=== PATIENT | male | born 1945 | race Caucasian/White ===

== ENCOUNTER 2021-05-20 14:37 | Inpatient (IN) | payer MEDICARE ==
[~2021-05-20 14:37] MED LIST: Iopamidol-370 76% 500 ML 1 ML ONE
[2021-05-20] MEDS ORDERED: Acetaminophen 500 MG TAB ONE (15:04)
[2021-05-20] MEDS ORDERED: Aspirin 325 MG TAB ONE (15:04)
[2021-05-20] MEDS ORDERED: Dexamethasone 10 MG/ML VIAL ONE (15:04)
[2021-05-20 15:23] LABS: Actual Bicarbonate (HCO3v) 23 mEq/L (22-28); Analyzer IN Cardio ER; Calcium, Ionized (venous) 1.07 mmol/L (1.16-1.32); Chloride (VBG) 96 mmol/L (98-106); Hemoglobin (Hb) 14.5 g/dL (12.6-17.4); Potassium (VBG) 4.64 mmol/L (3.70-5.30); Sodium 131.1 mmol/L (133-146); pH (venous) 7.42 (7.32-7.43)
[2021-05-20 15:33] LABS: #Eosinphils 0.1 thou/uL (0.0-0.7); #Lymphocytes 0.8 thou/uL (1.20-3.40); #Monocytes 0.3 thou/uL (0.11-0.59); #Neutrophils 9.6 thou/uL (1.40-6.50); %Basophils 0.4 % (0.0-1.0); %Eosinophils 0.5 % (0.0-10.0); %Lymphocytes 7.2 % (21.0-51.0); %Neutrophils 88.9 % (42.0-75.0); Hemoglobin 14.2 g/dL (14.0-18.0); Mean Corpuscular Hemoglobin 27.7 pg (27.0-31.0); Mean Corpuscular Volume 86.6 fL (78.0-98.0); Platelet Count 263 thou/uL (130-400); RBC Distribution Width 12.3 % (11.5-14.5); Red Blood Cell (RBC) Count 5.11 mill/uL (4.70-6.10); White Blood Cell (WBC) Count 10.7 thou/uL (4.8-10.8)
[2021-05-20 15:55] LABS: ALT (SGPT) 14 U/L (8-55); AST (SGOT) 36 U/L (5-34); Albumin 4.1 g/dL (3.4-4.8); Alkaline Phosphatase 66 U/L (40-110); Anion Gap 16 mmol/L (10-20); BUN (Urea Nitrogen) 21 mg/dL (8.4-25.7); Bilirubin, Total 0.4 mg/dL (0.2-1.2); Calc. Creatinine Clearance 0 mL/min (70-130); Carbon Dioxide 24 mmol/L (23-31); Chloride 97 mmol/L (98-107); Globulin 3.2 g/dL (2.4-3.5); Glucose 100 mg/dL (83-110); Potassium 4.9 mmol/L (3.5-5.1); Protein, Total 7.3 g/dL (5.8-8.1); Sodium 132 mmol/L (136-145)
[2021-05-20] MEDS ORDERED: Calcium Carbonate 500 MG ChewTAB PO PRN (18:03)
[2021-05-20] MEDS ORDERED: Senokot S 8.6-50 MG TAB PO PRN (18:03)
[2021-05-20] MEDS ORDERED: Enoxaparin Sodium 40 MG/0.4 ML SYRINGE SC SCH (18:15)
[2021-05-20] MEDS ORDERED: Pharmacy to Dose REMDESIVIR IVPB PRN (18:27)
[2021-05-20 18:47] LABS: Lactic Acid 1.1 mmol/L (0.5-2.2)
[2021-05-20] MEDS: Azithromycin 500 MG in Sodium Chloride 0.9% 250 ML 250 ML IVPB SCH (21:05)
[2021-05-20] MEDS: Famotidine/PF 20 mg/2ml Vial SLOW IVP SCH (21:26)
[2021-05-21 02:06] LABS: SARS-CoV-2 NAA Rapid Test DETECTED (NotDetected)
[2021-05-21] MEDS: Dexamethasone 10 MG/ML VIAL SLOW IVP SCH ×2 (02:32→17:01)
[2021-05-21] MEDS: Ondansetron PF 4 MG/2 ML Vial IVP PRN ×2 (02:36→18:20)
[2021-05-21 08:01] LABS: #Lymphocytes 0.4 thou/uL (1.20-3.40); #Monocytes 0.2 thou/uL (0.11-0.59); #Neutrophils 7.5 thou/uL (1.40-6.50); %Basophils 0.2 % (0.0-1.0); %Eosinophils 0.5 % (0.0-10.0); %Lymphocytes 4.6 % (21.0-51.0); %Monocytes 2.4 % (0.0-10.0); %Neutrophils 92.4 % (42.0-75.0); Hemoglobin 13.1 g/dL (14.0-18.0); Mean Corpuscular HGB CONC 31.9 g/dL (32.0-36.0); Mean Corpuscular Hemoglobin 27.4 pg (27.0-31.0); Mean Corpuscular Volume 85.8 fL (78.0-98.0); Mean Platelet Volume 7.7 fL (7.4-10.4); Platelet Count 273 thou/uL (130-400); RBC Distribution Width 12.2 % (11.5-14.5); Red Blood Cell (RBC) Count 4.78 mill/uL (4.70-6.10); White Blood Cell (WBC) Count 8.1 thou/uL (4.8-10.8)
[2021-05-21 08:16] LABS: ALT (SGPT) 12 U/L (8-55); AST (SGOT) 33 U/L (5-34); Albumin 3.5 g/dL (3.4-4.8); Alkaline Phosphatase 57 U/L (40-110); Anion Gap 14 mmol/L (10-20); BUN (Urea Nitrogen) 18 mg/dL (8.4-25.7); Bilirubin, Total 0.4 mg/dL (0.2-1.2); Calc. Creatinine Clearance 102 mL/min (70-130); Calcium 8.6 mg/dL (7.8-10.44); Carbon Dioxide 24 mmol/L (23-31); Chloride 100 mmol/L (98-107); Globulin 2.8 g/dL (2.4-3.5); Glucose 131 mg/dL (83-110); Potassium 4.9 mmol/L (3.5-5.1); Protein, Total 6.3 g/dL (5.8-8.1); Sodium 133 mmol/L (136-145)
[2021-05-21] MEDS ORDERED: FLU VACC QS2021-22(65YR UP)/PF 240 MCG/0.7 ML SYRINGE IM ONE (09:00)
[2021-05-21] MEDS ORDERED: Cholecalciferol (Vitamin D3) 400 UNITS TAB PO SCH (09:00)
[2021-05-21] MEDS ORDERED: Zinc Sulfate 220 MG CAP PO SCH (09:00)
[2021-05-21] MEDS ORDERED: Ascorbic Acid 500 mg Chewable Tablet PO SCH (09:00)
[2021-05-21] MEDS: Ascorbic Acid 500 mg Chewable Tablet PO SCH (09:41)
[2021-05-21] MEDS: HYDROcodone/Acetaminophen 5/325 mg Tablet PO PRN (09:41)
[2021-05-21] MEDS: Benzonatate 100 MG CAP PO PRN ×2 (09:41→17:01)
[2021-05-21] MEDS: Famotidine/PF 20 mg/2ml Vial SLOW IVP SCH ×2 (09:42→20:07)
[2021-05-21] MEDS: Zinc Sulfate 220 MG CAP PO SCH (09:42)
[2021-05-21] MEDS: Guaifenesin DM 100-10/5 ML UDCUP PO PRN ×2 (09:43→17:01)
[2021-05-21] MEDS: Cholecalciferol (Vitamin D3) 400 UNITS TAB PO SCH (09:43)
[2021-05-21] MEDS: Enoxaparin Sodium 40 MG/0.4 ML SYRINGE SC SCH (09:43)
[2021-05-21] MEDS ORDERED: REMDESIVIR 200 MG in Sodium Chloride 0.9% 250 ML 210 ML IV SCH (10:00)
[2021-05-21] MEDS: cefTRIAXone\\ROCEPHIN 2 GM in Sodium Chloride 0.9% 100 ML IVPB SCH (17:00)
[2021-05-21] MEDS: Acetaminophen 325 MG TAB PO PRN (17:17)
[2021-05-21] MEDS: Azithromycin 500 MG in Sodium Chloride 0.9% 250 ML 250 ML IVPB SCH (18:07)
[2021-05-21] MEDS: Melatonin 3 MG TAB PO PRN (20:07)
[2021-05-22] MEDS: Dexamethasone 10 MG/ML VIAL SLOW IVP SCH ×2 (02:38→15:23)
[2021-05-22] MEDS: hydrOXYzine 25 MG TAB PO PRN (02:38)
[2021-05-22] MEDS: Benzonatate 100 MG CAP PO PRN (08:22)
[2021-05-22] MEDS: Cholecalciferol (Vitamin D3) 400 UNITS TAB PO SCH (08:22)
[2021-05-22] MEDS: Ascorbic Acid 500 mg Chewable Tablet PO SCH (08:22)
[2021-05-22] MEDS: Guaifenesin DM 100-10/5 ML UDCUP PO PRN (08:23)
[2021-05-22] MEDS: HYDROcodone/Acetaminophen 5/325 mg Tablet PO PRN (08:23)
[2021-05-22] MEDS: Zinc Sulfate 220 MG CAP PO SCH (08:23)
[2021-05-22] MEDS: Famotidine/PF 20 mg/2ml Vial SLOW IVP SCH ×2 (08:24→20:45)
[2021-05-22] MEDS: Enoxaparin Sodium 40 MG/0.4 ML SYRINGE SC SCH (08:24)
[2021-05-22 08:39] LABS: #Lymphocytes 0.3 thou/uL (1.20-3.40); #Monocytes 0.3 thou/uL (0.11-0.59); #Neutrophils 7.4 thou/uL (1.40-6.50); %Eosinophils 0.2 % (0.0-10.0); %Lymphocytes 4.1 % (21.0-51.0); %Monocytes 3.8 % (0.0-10.0); %Neutrophils 91.9 % (42.0-75.0); Hemoglobin 12.2 g/dL (14.0-18.0); Mean Corpuscular HGB CONC 32.4 g/dL (32.0-36.0); Mean Corpuscular Hemoglobin 28.1 pg (27.0-31.0); Mean Corpuscular Volume 86.5 fL (78.0-98.0); Mean Platelet Volume 7.7 fL (7.4-10.4); Platelet Count 277 thou/uL (130-400); RBC Distribution Width 12.2 % (11.5-14.5); Red Blood Cell (RBC) Count 4.35 mill/uL (4.70-6.10)
[2021-05-22 08:52] LABS: Anion Gap 13 mmol/L (10-20); BUN (Urea Nitrogen) 28 mg/dL (8.4-25.7); CRP (Inflammatory) 3.62 mg/dL (= or < 0.5); Calc. Creatinine Clearance 105 mL/min (70-130); Calcium 8.2 mg/dL (7.8-10.44); Carbon Dioxide 24 mmol/L (23-31); Chloride 102 mmol/L (98-107); Glucose 138 mg/dL (83-110); Potassium 4.9 mmol/L (3.5-5.1); Sodium 134 mmol/L (136-145)
[2021-05-22] MEDS: REMDESIVIR 100 MG in Sodium Chloride 0.9% 250 ML 230 ML IV SCH (10:59)
[2021-05-22] MEDS ORDERED: BARICITINIB 2 MG TAB PO SCH (12:00)
[2021-05-22] MEDS: cefTRIAXone\\ROCEPHIN 2 GM in Sodium Chloride 0.9% 100 ML IVPB SCH (17:27)
[2021-05-22] MEDS: Azithromycin 500 MG in Sodium Chloride 0.9% 250 ML 250 ML IVPB SCH (18:38)
[2021-05-23] MEDS: Melatonin 3 MG TAB PO PRN ×2 (01:08→20:45)
[2021-05-23] MEDS: Dexamethasone 10 MG/ML VIAL SLOW IVP SCH ×2 (03:01→16:46)
[2021-05-23 04:10] LABS: #Lymphocytes 0.4 thou/uL (1.20-3.40); #Monocytes 0.4 thou/uL (0.11-0.59); #Neutrophils 5.6 thou/uL (1.40-6.50); %Basophils 0.5 % (0.0-1.0); %Eosinophils 0.8 % (0.0-10.0); %Lymphocytes 6.8 % (21.0-51.0); %Monocytes 5.5 % (0.0-10.0); %Neutrophils 86.5 % (42.0-75.0); Hemoglobin 12.2 g/dL (14.0-18.0); Mean Corpuscular HGB CONC 34.2 g/dL (32.0-36.0); Mean Corpuscular Hemoglobin 29.6 pg (27.0-31.0); Mean Corpuscular Volume 86.5 fL (78.0-98.0); Mean Platelet Volume 7.8 fL (7.4-10.4); Platelet Count 282 thou/uL (130-400); RBC Distribution Width 12.1 % (11.5-14.5); Red Blood Cell (RBC) Count 4.14 mill/uL (4.70-6.10); White Blood Cell (WBC) Count 6.5 thou/uL (4.8-10.8)
[2021-05-23 04:27] LABS: Anion Gap 16 mmol/L (10-20); BUN (Urea Nitrogen) 31 mg/dL (8.4-25.7); CRP (Inflammatory) 2.11 mg/dL (= or < 0.5); Calc. Creatinine Clearance 107 mL/min (70-130); Calcium 8.2 mg/dL (7.8-10.44); Carbon Dioxide 21 mmol/L (23-31); Chloride 103 mmol/L (98-107); Glucose 126 mg/dL (83-110); Potassium 4.7 mmol/L (3.5-5.1); Sodium 135 mmol/L (136-145)
[2021-05-23] MEDS: REMDESIVIR 100 MG in Sodium Chloride 0.9% 250 ML 230 ML IV SCH (08:27)
[2021-05-23] MEDS: Famotidine/PF 20 mg/2ml Vial SLOW IVP SCH ×2 (08:27→20:54)
[2021-05-23] MEDS: Cholecalciferol (Vitamin D3) 400 UNITS TAB PO SCH (08:27)
[2021-05-23] MEDS: Ascorbic Acid 500 mg Chewable Tablet PO SCH (08:27)
[2021-05-23] MEDS: Enoxaparin Sodium 40 MG/0.4 ML SYRINGE SC SCH (08:27)
[2021-05-23] MEDS: Aspirin 81 mg Enteric Coated Tablet PO SCH (08:27)
[2021-05-23] MEDS: Zinc Sulfate 220 MG CAP PO SCH (08:27)
[2021-05-23] MEDS: BARICITINIB 2 MG TAB PO SCH (08:27)
[2021-05-23] MEDS: Acetaminophen 325 MG TAB PO PRN (17:39)
[2021-05-23] MEDS ORDERED: Lorazepam 2 MG/ML VIAL SLOW IVP SCH (23:15)
[2021-05-24] MEDS: Dexamethasone 10 MG/ML VIAL SLOW IVP SCH ×2 (03:55→16:05)
[2021-05-24 04:05] LABS: #Lymphocytes 0.4 thou/uL (1.20-3.40); #Monocytes 0.5 thou/uL (0.11-0.59); #Neutrophils 7.4 thou/uL (1.40-6.50); %Eosinophils 0.2 % (0.0-10.0); %Lymphocytes 4.5 % (21.0-51.0); %Monocytes 5.5 % (0.0-10.0); %Neutrophils 89.9 % (42.0-75.0); Hemoglobin 11.9 g/dL (14.0-18.0); Mean Corpuscular HGB CONC 32.7 g/dL (32.0-36.0); Mean Corpuscular Hemoglobin 27.8 pg (27.0-31.0); Mean Platelet Volume 7.8 fL (7.4-10.4); Platelet Count 335 thou/uL (130-400); Red Blood Cell (RBC) Count 4.29 mill/uL (4.70-6.10); White Blood Cell (WBC) Count 8.3 thou/uL (4.8-10.8)
[2021-05-24 04:27] LABS: Anion Gap 14 mmol/L (10-20); BUN (Urea Nitrogen) 31 mg/dL (8.4-25.7); CRP (Inflammatory) 1.08 mg/dL (= or < 0.5); Calc. Creatinine Clearance 107 mL/min (70-130); Calcium 8.5 mg/dL (7.8-10.44); Carbon Dioxide 22 mmol/L (23-31); Chloride 102 mmol/L (98-107); Glucose 119 mg/dL (83-110); Potassium 4.4 mmol/L (3.5-5.1); Sodium 134 mmol/L (136-145)
[2021-05-24] MEDS: Aspirin 81 mg Enteric Coated Tablet PO SCH (09:06)
[2021-05-24] MEDS: Zinc Sulfate 220 MG CAP PO SCH (09:06)
[2021-05-24] MEDS: Ondansetron PF 4 MG/2 ML Vial IVP PRN (09:06)
[2021-05-24] MEDS: Ascorbic Acid 500 mg Chewable Tablet PO SCH (09:06)
[2021-05-24] MEDS: Famotidine/PF 20 mg/2ml Vial SLOW IVP SCH ×2 (09:06→21:33)
[2021-05-24] MEDS: Cholecalciferol (Vitamin D3) 400 UNITS TAB PO SCH (09:06)
[2021-05-24] MEDS: BARICITINIB 2 MG TAB PO SCH (09:06)
[2021-05-24] MEDS: ALPRAZolam 0.5 MG TAB PO PRN (09:06)
[2021-05-24] MEDS: Enoxaparin Sodium 40 MG/0.4 ML SYRINGE SC SCH (09:07)
[2021-05-24] MEDS: REMDESIVIR 100 MG in Sodium Chloride 0.9% 250 ML 230 ML IV SCH (09:07)
[2021-05-25] MEDS: Dexamethasone 10 MG/ML VIAL SLOW IVP SCH (02:06)
[2021-05-25] MEDS: Melatonin 3 MG TAB PO PRN ×2 (02:06→21:23)
[2021-05-25] MEDS: ALPRAZolam 0.5 MG TAB PO PRN ×3 (02:06→21:23)
[2021-05-25] MEDS: hydrOXYzine 25 MG TAB PO PRN (02:36)
[2021-05-25 04:04] LABS: #Lymphocytes 0.4 thou/uL (1.20-3.40); #Monocytes 0.4 thou/uL (0.11-0.59); #Neutrophils 8.9 thou/uL (1.40-6.50); %Eosinophils 0.3 % (0.0-10.0); %Lymphocytes 4.3 % (21.0-51.0); %Monocytes 3.7 % (0.0-10.0); %Neutrophils 91.7 % (42.0-75.0); Hemoglobin 11.5 g/dL (14.0-18.0); Mean Corpuscular HGB CONC 31.9 g/dL (32.0-36.0); Mean Corpuscular Hemoglobin 27.4 pg (27.0-31.0); Mean Corpuscular Volume 85.9 fL (78.0-98.0); Platelet Count 334 thou/uL (130-400); RBC Distribution Width 12.1 % (11.5-14.5); Red Blood Cell (RBC) Count 4.22 mill/uL (4.70-6.10); White Blood Cell (WBC) Count 9.7 thou/uL (4.8-10.8)
[2021-05-25 04:19] LABS: Anion Gap 14 mmol/L (10-20); BUN (Urea Nitrogen) 28 mg/dL (8.4-25.7); CRP (Inflammatory) 0.76 mg/dL (= or < 0.5); Calc. Creatinine Clearance 104 mL/min (70-130); Calcium 8.7 mg/dL (7.8-10.44); Carbon Dioxide 25 mmol/L (23-31); Chloride 103 mmol/L (98-107); Glucose 116 mg/dL (83-110); Potassium 4.6 mmol/L (3.5-5.1); Sodium 137 mmol/L (136-145)
[2021-05-25] MEDS ORDERED: Dexamethasone 10 MG in Sodium Chloride 0.9% 50 ML IVPB SCH (09:00)
[2021-05-25] MEDS: BARICITINIB 2 MG TAB PO SCH (09:03)
[2021-05-25] MEDS: Ascorbic Acid 500 mg Chewable Tablet PO SCH ×2 (09:03→09:04)
[2021-05-25] MEDS: REMDESIVIR 100 MG in Sodium Chloride 0.9% 250 ML 230 ML IV SCH (09:03)
[2021-05-25] MEDS: Famotidine 20 MG TAB PO SCH ×2 (09:03→21:23)
[2021-05-25] MEDS: Aspirin 81 mg Enteric Coated Tablet PO SCH (09:03)
[2021-05-25] MEDS: Cholecalciferol (Vitamin D3) 400 UNITS TAB PO SCH (09:04)
[2021-05-25] MEDS: Zinc Sulfate 220 MG CAP PO SCH (09:04)
[2021-05-25] MEDS: Dexamethasone 4 mg/ml Vial SLOW IVP SCH (09:04)
[2021-05-25] MEDS: Enoxaparin Sodium 40 MG/0.4 ML SYRINGE SC SCH (09:04)
[2021-05-25] MEDS ORDERED: Bisacodyl 5 MG TAB PO PRN (13:30)
[2021-05-26 03:54] LABS: Hemoglobin 12.6 g/dL (14.0-18.0); Hypochromia SLIGHT = 6-15 cells (100X) (0-5/hpf); Lymphocytes 20 % (21-51); MDiff Complete? YES; Mean Corpuscular HGB CONC 33.1 g/dL (32.0-36.0); Mean Corpuscular Hemoglobin 28.5 pg (27.0-31.0); Mean Corpuscular Volume 86.2 fL (78.0-98.0); Monocytes 11 % (0-10); Neutrophil 69 % (42-75); Platelet Count 364 thou/uL (130-400); Platelet Morphology Comment Appears Adequate; RBC Distribution Width 12.2 % (11.5-14.5); Red Blood Cell (RBC) Count 4.44 mill/uL (4.70-6.10); White Blood Cell (WBC) Count 16.1 thou/uL (4.8-10.8)
[2021-05-26 03:58] LABS: ALT (SGPT) 13 U/L (8-55); AST (SGOT) 19 U/L (5-34); Albumin 3.1 g/dL (3.4-4.8); Alkaline Phosphatase 63 U/L (40-110); Bilirubin, Direct 0.3 mg/dL (0.1-0.3); Bilirubin, Total 0.8 mg/dL (0.2-1.2); Protein, Total 5.7 g/dL (5.8-8.1)
[2021-05-26 04:10] LABS: Anion Gap 14 mmol/L (10-20); BUN (Urea Nitrogen) 30 mg/dL (8.4-25.7); CRP (Inflammatory) 0.55 mg/dL (= or < 0.5); Calc. Creatinine Clearance 97 mL/min (70-130); Calcium 9.2 mg/dL (7.8-10.44); Carbon Dioxide 23 mmol/L (23-31); Chloride 103 mmol/L (98-107); Glucose 106 mg/dL (83-110); Potassium 4.4 mmol/L (3.5-5.1); Sodium 136 mmol/L (136-145)
[2021-05-26] MEDS: Dexamethasone 4 mg/ml Vial SLOW IVP SCH (08:23)
[2021-05-26] MEDS: Enoxaparin Sodium 40 MG/0.4 ML SYRINGE SC SCH (08:23)
[2021-05-26] MEDS: Zinc Sulfate 220 MG CAP PO SCH (08:24)
[2021-05-26] MEDS: Aspirin 81 mg Enteric Coated Tablet PO SCH (08:24)
[2021-05-26] MEDS: Cholecalciferol (Vitamin D3) 400 UNITS TAB PO SCH (08:24)
[2021-05-26] MEDS: BARICITINIB 2 MG TAB PO SCH (08:24)
[2021-05-26] MEDS: Famotidine 20 MG TAB PO SCH ×2 (08:24→20:44)
[2021-05-26] MEDS: ALPRAZolam 0.5 MG TAB PO PRN (09:18)
[2021-05-26] MEDS: hydrOXYzine 25 MG TAB PO PRN (20:44)
[2021-05-26] MEDS: Melatonin 3 MG TAB PO PRN (20:44)
[2021-05-27] MEDS: Ondansetron PF 4 MG/2 ML Vial IVP PRN (05:09)
[2021-05-27 06:13] LABS: Anion Gap 14 mmol/L (10-20); BUN (Urea Nitrogen) 29 mg/dL (8.4-25.7); CRP (Inflammatory) 3.01 mg/dL (= or < 0.5); Calc. Creatinine Clearance 98 mL/min (70-130); Calcium 9.4 mg/dL (7.8-10.44); Carbon Dioxide 25 mmol/L (23-31); Chloride 102 mmol/L (98-107); Glucose 98 mg/dL (83-110); Potassium 4.2 mmol/L (3.5-5.1); Sodium 137 mmol/L (136-145)
[2021-05-27 06:21] LABS: Band 3 % (5-11); Hemoglobin 12.5 g/dL (14.0-18.0); Hypochromia SLIGHT = 6-15 cells (100X) (0-5/hpf); Lymphocytes 5 % (21-51); MDiff Complete? YES; Mean Corpuscular HGB CONC 30.8 g/dL (32.0-36.0); Mean Corpuscular Hemoglobin 26.6 pg (27.0-31.0); Mean Corpuscular Volume 86.4 fL (78.0-98.0); Mean Platelet Volume 8.3 fL (7.4-10.4); Neutrophil 90 % (42-75); Platelet Count 365 thou/uL (130-400); Platelet Morphology Comment Appears Adequate; RBC Distribution Width 12.3 % (11.5-14.5); Reactive Lymphocytes 2 % (0-10); Red Blood Cell (RBC) Count 4.69 mill/uL (4.70-6.10); White Blood Cell (WBC) Count 21.4 thou/uL (4.8-10.8)
[2021-05-27] MEDS: ALPRAZolam 0.5 MG TAB PO PRN (08:48)
[2021-05-27] MEDS: Ascorbic Acid 500 mg Chewable Tablet PO SCH (08:48)
[2021-05-27] MEDS: Cholecalciferol (Vitamin D3) 400 UNITS TAB PO SCH (08:48)
[2021-05-27] MEDS: BARICITINIB 2 MG TAB PO SCH (08:48)
[2021-05-27] MEDS: Aspirin 81 mg Enteric Coated Tablet PO SCH (08:48)
[2021-05-27] MEDS: Enoxaparin Sodium 40 MG/0.4 ML SYRINGE SC SCH ×2 (08:48→20:01)
[2021-05-27] MEDS: Zinc Sulfate 220 MG CAP PO SCH (08:48)
[2021-05-27] MEDS: Famotidine 20 MG TAB PO SCH ×2 (08:48→20:01)
[2021-05-27] MEDS: Dexamethasone 4 mg/ml Vial SLOW IVP SCH ×2 (08:48→19:59)
[2021-05-27] MEDS ORDERED: Cefepime 1 GM in Sodium Chloride 0.9% 100 ML IVPB SCH (09:00)
[2021-05-27] MEDS: Cefepime 1 GM in Sodium Chloride 0.9% 100 ML IVPB SCH ×2 (10:12→21:58)
[2021-05-27] MEDS ORDERED: Amino Acids 4.25 %/Dextrose 5% 1,000 ML IV SCH (19:15)
[2021-05-28 04:03] LABS: D-Dimer Test 16.27 *mcg/mL (0.27-0.43)
[2021-05-28] MEDS: Aspirin 81 mg Enteric Coated Tablet PO SCH (09:01)
[2021-05-28] MEDS: Enoxaparin Sodium 40 MG/0.4 ML SYRINGE SC SCH (09:01)
[2021-05-28] MEDS: Ascorbic Acid 500 mg Chewable Tablet PO SCH (09:01)
[2021-05-28] MEDS: Zinc Sulfate 220 MG CAP PO SCH (09:01)
[2021-05-28] MEDS: Dexamethasone 4 mg/ml Vial SLOW IVP SCH ×2 (09:01→20:54)
[2021-05-28] MEDS: Cholecalciferol (Vitamin D3) 400 UNITS TAB PO SCH (09:01)
[2021-05-28] MEDS: Famotidine 20 MG TAB PO SCH ×2 (09:01→20:54)
[2021-05-28] MEDS: BARICITINIB 2 MG TAB PO SCH (09:01)
[2021-05-28] MEDS: Cefepime 1 GM in Sodium Chloride 0.9% 100 ML IVPB SCH ×2 (09:02→20:54)
[2021-05-28] MEDS ORDERED: Enoxaparin Sodium 60 MG/0.6 ML SYRINGE SC SCH (09:15)
[2021-05-28 09:27] LABS: Hemoglobin 13.1 g/dL (14.0-18.0); Mean Corpuscular HGB CONC 32.8 g/dL (32.0-36.0); Mean Corpuscular Hemoglobin 28.6 pg (27.0-31.0); Mean Corpuscular Volume 87.4 fL (78.0-98.0); Mean Platelet Volume 8.6 fL (7.4-10.4); Platelet Count 342 thou/uL (130-400); RBC Distribution Width 12.5 % (11.5-14.5); Red Blood Cell (RBC) Count 4.58 mill/uL (4.70-6.10); White Blood Cell (WBC) Count 17.1 thou/uL (4.8-10.8)
[2021-05-28 10:03] LABS: Anion Gap 17 mmol/L (10-20); BUN (Urea Nitrogen) 40 mg/dL (8.4-25.7); Calc. Creatinine Clearance 92 mL/min (70-130); Carbon Dioxide 21 mmol/L (23-31); Chloride 105 mmol/L (98-107); Glucose 135 mg/dL (83-110); Potassium 4.7 mmol/L (3.5-5.1); Sodium 138 mmol/L (136-145)
[2021-05-28 11:04] LABS: Band 1 % (5-11); Lymphocytes 3 % (21-51); MDiff Complete? YES; Neutrophil 96 % (42-75); Platelet Morphology Comment Appears Adequate; Polychromasia SLIGHT = 2-3 cells (100X) (0-2/hpf); RBC Morphology Normal
[2021-05-28] MEDS: Enoxaparin Sodium 100 MG/ML SYRINGE SC SCH (20:54)
[2021-05-28] MEDS: ALPRAZolam 0.5 MG TAB PO PRN (20:57)
[2021-05-28] MEDS: Melatonin 3 MG TAB PO PRN (20:57)
[2021-05-29 04:50] LABS: ALT (SGPT) 15 U/L (8-55); AST (SGOT) 28 U/L (5-34); Albumin 2.8 g/dL (3.4-4.8); Alkaline Phosphatase 60 U/L (40-110); Anion Gap 16 mmol/L (10-20); BUN (Urea Nitrogen) 38 mg/dL (8.4-25.7); Bilirubin, Direct 0.4 mg/dL (0.1-0.3); Bilirubin, Total 0.8 mg/dL (0.2-1.2); Calc. Creatinine Clearance 104 mL/min (70-130); Calcium 9.2 mg/dL (7.8-10.44); Carbon Dioxide 18 mmol/L (23-31); Chloride 105 mmol/L (98-107); Glucose 150 mg/dL (83-110); Potassium 4.2 mmol/L (3.5-5.1); Protein, Total 5.5 g/dL (5.8-8.1); Sodium 135 mmol/L (136-145)
[2021-05-29 04:56] LABS: Hemoglobin 12.2 g/dL (14.0-18.0); Lymphocytes 4 % (21-51); MDiff Complete? YES; Mean Corpuscular HGB CONC 33.1 g/dL (32.0-36.0); Mean Corpuscular Hemoglobin 28.7 pg (27.0-31.0); Mean Corpuscular Volume 86.6 fL (78.0-98.0); Mean Platelet Volume 8.9 fL (7.4-10.4); Monocytes 3 % (0-10); Myelocyte 1 % (0-0); Neutrophil 92 % (42-75); Platelet Count 344 thou/uL (130-400); Platelet Morphology Comment Appears Adequate; RBC Distribution Width 12.5 % (11.5-14.5); RBC Morphology Normal; Red Blood Cell (RBC) Count 4.24 mill/uL (4.70-6.10); White Blood Cell (WBC) Count 15.3 thou/uL (4.8-10.8)
[2021-05-29] MEDS: Cholecalciferol (Vitamin D3) 400 UNITS TAB PO SCH (09:34)
[2021-05-29] MEDS: BARICITINIB 2 MG TAB PO SCH (09:34)
[2021-05-29] MEDS: Aspirin 81 mg Enteric Coated Tablet PO SCH (09:34)
[2021-05-29] MEDS: Famotidine 20 MG TAB PO SCH ×2 (09:35→09:36)
[2021-05-29] MEDS: Dexamethasone 4 mg/ml Vial SLOW IVP SCH ×2 (09:35→19:27)
[2021-05-29] MEDS: Enoxaparin Sodium 100 MG/ML SYRINGE SC SCH (09:35)
[2021-05-29] MEDS: Zinc Sulfate 220 MG CAP PO SCH (09:35)
[2021-05-29] MEDS: Cefepime 1 GM in Sodium Chloride 0.9% 100 ML IVPB SCH ×2 (09:36→21:00)
[2021-05-29] MEDS: Ascorbic Acid 500 mg Chewable Tablet PO SCH (09:37)
[2021-05-29] MEDS: Dextrose 5 % And 0.9 % NaCl 1,000 ML IV SCH ×2 (09:51→19:24)
[2021-05-29] MEDS: Melatonin 3 MG TAB PO PRN (19:26)
[2021-05-29] MEDS: Pantoprazole 40 MG VIAL IVP SCH (19:27)
[2021-05-29] MEDS: Enoxaparin Sodium 60 MG/0.6 ML SYRINGE SC SCH (19:27)
[2021-05-29] MEDS: ALPRAZolam 0.5 MG TAB PO PRN (21:12)
[2021-05-29] MEDS: HYDROcodone/Acetaminophen 5/325 mg Tablet PO PRN (21:12)
[2021-05-30] MEDS: hydrOXYzine 25 MG TAB PO PRN (05:03)
[2021-05-30] MEDS: Dextrose 5 % And 0.9 % NaCl 1,000 ML IV SCH (05:04)
[2021-05-30 05:14] LABS: Band 7 % (5-11); Hemoglobin 11.6 g/dL (14.0-18.0); Hypochromia SLIGHT = 6-15 cells (100X) (0-5/hpf); Lymphocytes 3 % (21-51); MDiff Complete? YES; Mean Corpuscular HGB CONC 32.7 g/dL (32.0-36.0); Mean Corpuscular Hemoglobin 28.4 pg (27.0-31.0); Mean Platelet Volume 8.8 fL (7.4-10.4); Monocytes 6 % (0-10); Neutrophil 84 % (42-75); Platelet Count 322 thou/uL (130-400); Platelet Morphology Comment Appears Adequate; RBC Distribution Width 12.6 % (11.5-14.5); Red Blood Cell (RBC) Count 4.06 mill/uL (4.70-6.10); White Blood Cell (WBC) Count 15.9 thou/uL (4.8-10.8)
[2021-05-30 05:23] LABS: Anion Gap 15 mmol/L (10-20); BUN (Urea Nitrogen) 34 mg/dL (8.4-25.7); Calc. Creatinine Clearance 109 mL/min (70-130); Calcium 8.8 mg/dL (7.8-10.44); Carbon Dioxide 19 mmol/L (23-31); Chloride 105 mmol/L (98-107); Glucose 149 mg/dL (83-110); Potassium 5.3 mmol/L (3.5-5.1); Sodium 134 mmol/L (136-145)
[2021-05-30] MEDS: Dexamethasone 4 mg/ml Vial SLOW IVP SCH ×2 (08:48→20:03)
[2021-05-30] MEDS: Ascorbic Acid 500 mg Chewable Tablet PO SCH (08:48)
[2021-05-30] MEDS: BARICITINIB 2 MG TAB PO SCH (08:48)
[2021-05-30] MEDS: Aspirin 81 mg Enteric Coated Tablet PO SCH (08:48)
[2021-05-30] MEDS: Cholecalciferol (Vitamin D3) 400 UNITS TAB PO SCH (08:48)
[2021-05-30] MEDS: Cefepime 1 GM in Sodium Chloride 0.9% 100 ML IVPB SCH (08:49)
[2021-05-30] MEDS: Enoxaparin Sodium 60 MG/0.6 ML SYRINGE SC SCH ×2 (08:49→20:02)
[2021-05-30] MEDS: Pantoprazole 40 MG VIAL IVP SCH ×2 (08:49→20:02)
[2021-05-30] MEDS: Zinc Sulfate 220 MG CAP PO SCH (08:51)
[2021-05-30] MEDS: HYDROcodone/Acetaminophen 5/325 mg Tablet PO PRN (09:16)
[2021-05-30] MEDS: ALPRAZolam 0.5 MG TAB PO PRN ×2 (09:16→16:14)
[2021-05-30] MEDS: HYDROcodone/Acetaminophen 7.5/325 mg Tablet PO PRN ×2 (16:14→20:02)
[2021-05-30] MEDS: Morphine 4 MG/ML VIAL SLOW IVP PRN ×2 (17:02→21:57)
[2021-05-30] MEDS: Cefepime 2 GM in Sodium Chloride 0.9% 100 ML IVPB SCH (18:12)
[2021-05-30] MEDS: Melatonin 3 MG TAB PO PRN (20:02)
[2021-05-31] MEDS: Cefepime 2 GM in Sodium Chloride 0.9% 100 ML IVPB SCH ×3 (01:12→16:54)
[2021-05-31 05:17] LABS: Anion Gap 13 mmol/L (10-20); BUN (Urea Nitrogen) 31 mg/dL (8.4-25.7); Calc. Creatinine Clearance 113 mL/min (70-130); Calcium 8.6 mg/dL (7.8-10.44); Carbon Dioxide 21 mmol/L (23-31); Chloride 104 mmol/L (98-107); Glucose 115 mg/dL (83-110); Potassium 5.7 mmol/L (3.5-5.1); Sodium 132 mmol/L (136-145)
[2021-05-31 05:40] LABS: Hemoglobin 11.6 g/dL (14.0-18.0); Mean Corpuscular HGB CONC 31.7 g/dL (32.0-36.0); Mean Corpuscular Hemoglobin 27.6 pg (27.0-31.0); Mean Corpuscular Volume 86.8 fL (78.0-98.0); Mean Platelet Volume 9.4 fL (7.4-10.4); Platelet Count 310 thou/uL (130-400); RBC Distribution Width 12.9 % (11.5-14.5); Red Blood Cell (RBC) Count 4.19 mill/uL (4.70-6.10); White Blood Cell (WBC) Count 18.4 thou/uL (4.8-10.8)
[2021-05-31 05:41] LABS: Band 8 % (5-11); Lymphocytes 3 % (21-51); MDiff Complete? YES; Metamyelocyte 1 % (0-0); Monocytes 3 % (0-10); Neutrophil 85 % (42-75); Platelet Morphology Comment Appears Adequate; RBC Morphology Normal
[2021-05-31] MEDS ORDERED: HYDROcodone/Acetaminophen 5/325 mg Tablet PO PRN (07:59)
[2021-05-31] MEDS ORDERED: HYDROcodone/Acetaminophen 7.5/325 mg Tablet PO PRN (07:59)
[2021-05-31] MEDS: Zinc Sulfate 220 MG CAP PO SCH (08:55)
[2021-05-31] MEDS: Cholecalciferol (Vitamin D3) 400 UNITS TAB PO SCH (08:55)
[2021-05-31] MEDS: Ascorbic Acid 500 mg Chewable Tablet PO SCH (08:55)
[2021-05-31] MEDS: Aspirin 81 mg Enteric Coated Tablet PO SCH (08:56)
[2021-05-31] MEDS: Pantoprazole 40 MG VIAL IVP SCH (08:56)
[2021-05-31] MEDS: Enoxaparin Sodium 60 MG/0.6 ML SYRINGE SC SCH ×2 (08:56→20:07)
[2021-05-31] MEDS: Dexamethasone 4 mg/ml Vial SLOW IVP SCH (08:56)
[2021-05-31] MEDS ORDERED: Furosemide 40 MG/4 ML VIAL IVP SCH (15:45)
[2021-05-31] MEDS ORDERED: Artificial Tear Sol 15 ML BOT EA EYE PRN (19:14)
[2021-05-31] MEDS: Melatonin 3 MG TAB PO PRN (20:05)
[2021-05-31] MEDS: Morphine 4 MG/ML VIAL SLOW IVP PRN ×2 (20:05→23:25)
[2021-05-31] MEDS: Nystatin Powder 15 GM BOT TOP SCH (20:08)
[2021-06-01] MEDS: ALPRAZolam 0.5 MG TAB PO PRN ×2 (00:34→20:08)
[2021-06-01] MEDS: Cefepime 2 GM in Sodium Chloride 0.9% 100 ML IVPB SCH ×3 (01:28→17:39)
[2021-06-01 05:43] LABS: Mean Corpuscular HGB CONC 32.9 g/dL (32.0-36.0); Mean Corpuscular Hemoglobin 28.5 pg (27.0-31.0); Mean Corpuscular Volume 86.8 fL (78.0-98.0); Mean Platelet Volume 9.3 fL (7.4-10.4); Platelet Count 314 thou/uL (130-400); RBC Distribution Width 13.1 % (11.5-14.5); Red Blood Cell (RBC) Count 4.55 mill/uL (4.70-6.10); White Blood Cell (WBC) Count 22.9 thou/uL (4.8-10.8)
[2021-06-01 05:51] LABS: Anion Gap 14 mmol/L (10-20); BUN (Urea Nitrogen) 39 mg/dL (8.4-25.7); Calc. Creatinine Clearance 104 mL/min (70-130); Calcium 8.8 mg/dL (7.8-10.44); Carbon Dioxide 26 mmol/L (23-31); Chloride 100 mmol/L (98-107); Glucose 105 mg/dL (83-110); Magnesium 2.1 mg/dL (1.6-2.6); Potassium 4.1 mmol/L (3.5-5.1); Sodium 136 mmol/L (136-145)
[2021-06-01 06:10] LABS: Phosphorus 2.4 mg/dL (2.3-4.7)
[2021-06-01 07:08] LABS: Band 7 % (5-11); Lymphocytes 3 % (21-51); MDiff Complete? YES; Neutrophil 90 % (42-75)
[2021-06-01] MEDS: Aspirin 81 mg Enteric Coated Tablet PO SCH (09:08)
[2021-06-01] MEDS: Cholecalciferol (Vitamin D3) 400 UNITS TAB PO SCH (09:08)
[2021-06-01] MEDS: Zinc Sulfate 220 MG CAP PO SCH (09:08)
[2021-06-01] MEDS: Enoxaparin Sodium 60 MG/0.6 ML SYRINGE SC SCH ×2 (09:08→20:07)
[2021-06-01] MEDS: Ascorbic Acid 500 mg Chewable Tablet PO SCH (09:08)
[2021-06-01] MEDS: Dexamethasone 4 mg/ml Vial SLOW IVP SCH (09:08)
[2021-06-01] MEDS: Nystatin Powder 15 GM BOT TOP SCH ×2 (09:09→20:10)
[2021-06-02] MEDS: Cefepime 2 GM in Sodium Chloride 0.9% 100 ML IVPB SCH ×3 (01:22→18:20)
[2021-06-02] MEDS: ALPRAZolam 0.5 MG TAB PO PRN ×2 (05:13→20:25)
[2021-06-02] MEDS: Nystatin Powder 15 GM BOT TOP SCH ×2 (08:03→20:25)
[2021-06-02] MEDS: Enoxaparin Sodium 60 MG/0.6 ML SYRINGE SC SCH ×2 (08:03→20:25)
[2021-06-02] MEDS: Dexamethasone 4 mg/ml Vial SLOW IVP SCH (08:03)
[2021-06-02] MEDS: Zinc Sulfate 220 MG CAP PO SCH (08:03)
[2021-06-02] MEDS: Aspirin 81 mg Enteric Coated Tablet PO SCH (08:03)
[2021-06-02] MEDS: Ascorbic Acid 500 mg Chewable Tablet PO SCH (08:03)
[2021-06-02] MEDS: Cholecalciferol (Vitamin D3) 400 UNITS TAB PO SCH (08:03)
[2021-06-02] MEDS: Mirtazapine 15 MG TAB PO SCH (20:25)
[2021-06-03] MEDS: Cefepime 2 GM in Sodium Chloride 0.9% 100 ML IVPB SCH ×3 (01:36→18:34)
[2021-06-03] MEDS: Dexamethasone 4 mg/ml Vial SLOW IVP SCH (08:28)
[2021-06-03] MEDS: Cholecalciferol (Vitamin D3) 400 UNITS TAB PO SCH (08:29)
[2021-06-03] MEDS: Enoxaparin Sodium 60 MG/0.6 ML SYRINGE SC SCH ×2 (08:29→19:37)
[2021-06-03] MEDS: Aspirin 81 mg Enteric Coated Tablet PO SCH (08:29)
[2021-06-03] MEDS: Ascorbic Acid 500 mg Chewable Tablet PO SCH (08:29)
[2021-06-03] MEDS: Zinc Sulfate 220 MG CAP PO SCH (08:29)
[2021-06-03] MEDS: Nystatin Powder 15 GM BOT TOP SCH ×2 (08:30→19:36)
[2021-06-03] MEDS: Morphine 4 MG/ML VIAL SLOW IVP PRN ×2 (09:15→20:03)
[2021-06-03] MEDS: ALPRAZolam 0.5 MG TAB PO PRN ×2 (09:16→19:36)
[2021-06-03] MEDS: Melatonin 3 MG TAB PO PRN (19:36)
[2021-06-03] MEDS: Mirtazapine 15 MG TAB PO SCH (19:36)
[2021-06-04] MEDS: Cefepime 2 GM in Sodium Chloride 0.9% 100 ML IVPB SCH ×3 (01:13→17:44)
[2021-06-04] MEDS: Morphine 4 MG/ML VIAL SLOW IVP PRN ×5 (01:13→22:53)
[2021-06-04 05:01] LABS: Hemoglobin 11.6 g/dL (14.0-18.0); Mean Corpuscular Volume 87.3 fL (78.0-98.0); Platelet Count 309 thou/uL (130-400); RBC Distribution Width 13.3 % (11.5-14.5); Red Blood Cell (RBC) Count 4.16 mill/uL (4.70-6.10); White Blood Cell (WBC) Count 23.6 thou/uL (4.8-10.8)
[2021-06-04 05:17] LABS: ALT (SGPT) 20 U/L (8-55); AST (SGOT) 19 U/L (5-34); Albumin 2.6 g/dL (3.4-4.8); Alkaline Phosphatase 83 U/L (40-110); Anion Gap 14 mmol/L (10-20); BUN (Urea Nitrogen) 30 mg/dL (8.4-25.7); Bilirubin, Total 0.5 mg/dL (0.2-1.2); Calc. Creatinine Clearance 109 mL/min (70-130); Calcium 8.3 mg/dL (7.8-10.44); Carbon Dioxide 24 mmol/L (23-31); Chloride 105 mmol/L (98-107); Globulin 2.4 g/dL (2.4-3.5); Glucose 106 mg/dL (83-110); Potassium 4.5 mmol/L (3.5-5.1); Sodium 138 mmol/L (136-145)
[2021-06-04 05:50] LABS: Band 4 % (5-11); Lymphocytes 2 % (21-51); MDiff Complete? YES; Monocytes 1 % (0-10); Neutrophil 93 % (42-75)
[2021-06-04] MEDS: Enoxaparin Sodium 60 MG/0.6 ML SYRINGE SC SCH ×2 (09:06→20:10)
[2021-06-04] MEDS: Dexamethasone 4 mg/ml Vial SLOW IVP SCH (09:07)
[2021-06-04] MEDS: Nystatin Powder 15 GM BOT TOP SCH ×2 (09:07→20:14)
[2021-06-04] MEDS: Ascorbic Acid 500 mg Chewable Tablet PO SCH (09:15)
[2021-06-04] MEDS: Aspirin 81 mg Enteric Coated Tablet PO SCH (09:15)
[2021-06-04] MEDS: Cholecalciferol (Vitamin D3) 400 UNITS TAB PO SCH (09:15)
[2021-06-04] MEDS: Zinc Sulfate 220 MG CAP PO SCH (09:16)
[2021-06-04] MEDS: ALPRAZolam 0.5 MG TAB PO PRN (10:52)
[2021-06-04] MEDS: Mirtazapine 15 MG TAB PO SCH (20:10)
[2021-06-04] MEDS: Melatonin 3 MG TAB PO PRN (20:10)
[2021-06-05] MEDS: Cefepime 2 GM in Sodium Chloride 0.9% 100 ML IVPB SCH ×3 (02:38→18:28)
[2021-06-05] MEDS: Morphine 4 MG/ML VIAL SLOW IVP PRN ×5 (02:38→19:42)
[2021-06-05] MEDS: Cholecalciferol (Vitamin D3) 400 UNITS TAB PO SCH (09:08)
[2021-06-05] MEDS: Ascorbic Acid 500 mg Chewable Tablet PO SCH (09:08)
[2021-06-05] MEDS: Aspirin 81 mg Enteric Coated Tablet PO SCH (09:08)
[2021-06-05] MEDS: Zinc Sulfate 220 MG CAP PO SCH (09:09)
[2021-06-05] MEDS: Enoxaparin Sodium 60 MG/0.6 ML SYRINGE SC SCH ×2 (09:55→20:14)
[2021-06-05] MEDS: Dexamethasone 4 mg/ml Vial SLOW IVP SCH (09:55)
[2021-06-05] MEDS: Nystatin Powder 15 GM BOT TOP SCH ×2 (09:56→20:43)
[2021-06-05] MEDS: Mirtazapine 15 MG TAB PO SCH (20:13)
[2021-06-05] MEDS: ALPRAZolam 0.5 MG TAB PO PRN (20:14)
[2021-06-06] MEDS: Cefepime 2 GM in Sodium Chloride 0.9% 100 ML IVPB SCH ×3 (01:30→17:44)
[2021-06-06] MEDS: ALPRAZolam 0.5 MG TAB PO PRN ×2 (05:39→20:14)
[2021-06-06] MEDS: Morphine 4 MG/ML VIAL SLOW IVP PRN ×3 (07:40→22:47)
[2021-06-06] MEDS: Dexamethasone 4 mg/ml Vial SLOW IVP SCH (07:42)
[2021-06-06] MEDS: Enoxaparin Sodium 60 MG/0.6 ML SYRINGE SC SCH ×2 (07:44→20:14)
[2021-06-06] MEDS: Nystatin Powder 15 GM BOT TOP SCH ×2 (07:44→20:14)
[2021-06-06] MEDS: Aspirin 81 mg Enteric Coated Tablet PO SCH (09:21)
[2021-06-06] MEDS: Ascorbic Acid 500 mg Chewable Tablet PO SCH (09:21)
[2021-06-06] MEDS: Cholecalciferol (Vitamin D3) 400 UNITS TAB PO SCH (09:22)
[2021-06-06] MEDS: Zinc Sulfate 220 MG CAP PO SCH (09:22)
[2021-06-06] MEDS: Sulfameth/Trimethoprim SS 400-80MG TAB PO SCH (10:33)
[2021-06-06] MEDS: Micafungin 100 MG in Sodium Chloride 0.9% 100 ML IVPB SCH (12:51)
[2021-06-06 13:18] VITALS: BMI 28.5
[2021-06-06 19:53] LABS: #Lymphocytes 0.4 thou/uL (1.20-3.40); #Monocytes 0.1 thou/uL (0.11-0.59); %Eosinophils 0.1 % (0.0-10.0); %Lymphocytes 2.5 % (21.0-51.0); %Neutrophils 96.4 % (42.0-75.0); Hemoglobin 11.7 g/dL (14.0-18.0); Mean Corpuscular HGB CONC 31.8 g/dL (32.0-36.0); Mean Corpuscular Hemoglobin 28.1 pg (27.0-31.0); Mean Corpuscular Volume 88.4 fL (78.0-98.0); Mean Platelet Volume 9.1 fL (7.4-10.4); Platelet Count 247 thou/uL (130-400); RBC Distribution Width 13.7 % (11.5-14.5); Red Blood Cell (RBC) Count 4.16 mill/uL (4.70-6.10); White Blood Cell (WBC) Count 14.5 thou/uL (4.8-10.8)
[2021-06-06] MEDS: Mirtazapine 15 MG TAB PO SCH (20:14)
[2021-06-07] MEDS: Cefepime 2 GM in Sodium Chloride 0.9% 100 ML IVPB SCH (01:58)
[2021-06-07 04:06] LABS: #Basophils 0.1 thou/uL (0.0-0.2); #Lymphocytes 0.4 thou/uL (1.20-3.40); #Monocytes 0.5 thou/uL (0.11-0.59); #Neutrophils 16.1 thou/uL (1.40-6.50); %Basophils 0.3 % (0.0-1.0); %Eosinophils 0.1 % (0.0-10.0); %Lymphocytes 2.3 % (21.0-51.0); %Monocytes 2.7 % (0.0-10.0); %Neutrophils 94.5 % (42.0-75.0); Hemoglobin 11.7 g/dL (14.0-18.0); Mean Corpuscular HGB CONC 31.8 g/dL (32.0-36.0); Mean Corpuscular Hemoglobin 28.7 pg (27.0-31.0); Mean Corpuscular Volume 90.3 fL (78.0-98.0); Mean Platelet Volume 9.2 fL (7.4-10.4); Platelet Count 253 thou/uL (130-400); RBC Distribution Width 13.8 % (11.5-14.5); Red Blood Cell (RBC) Count 4.09 mill/uL (4.70-6.10)
[2021-06-07 04:27] LABS: ALT (SGPT) 15 U/L (8-55); AST (SGOT) 17 U/L (5-34); Albumin 2.6 g/dL (3.4-4.8); Alkaline Phosphatase 82 U/L (40-110); Anion Gap 15 mmol/L (10-20); BUN (Urea Nitrogen) 28 mg/dL (8.4-25.7); Bilirubin, Total 0.4 mg/dL (0.2-1.2); Calc. Creatinine Clearance 133 mL/min (70-130); Calcium 8.2 mg/dL (7.8-10.44); Carbon Dioxide 25 mmol/L (23-31); Chloride 102 mmol/L (98-107); Globulin 2.5 g/dL (2.4-3.5); Glucose 109 mg/dL (83-110); Potassium 4.8 mmol/L (3.5-5.1); Protein, Total 5.1 g/dL (5.8-8.1); Sodium 137 mmol/L (136-145)
[2021-06-07] MEDS: Zinc Sulfate 220 MG CAP PO SCH (10:21)
[2021-06-07] MEDS: Ascorbic Acid 500 mg Chewable Tablet PO SCH (10:21)
[2021-06-07] MEDS: Cholecalciferol (Vitamin D3) 400 UNITS TAB PO SCH (10:21)
[2021-06-07] MEDS: Enoxaparin Sodium 60 MG/0.6 ML SYRINGE SC SCH ×2 (10:24→21:07)
[2021-06-07] MEDS: Aspirin 81 mg Enteric Coated Tablet PO SCH (10:25)
[2021-06-07] MEDS: Dexamethasone 10 MG/ML VIAL SLOW IVP SCH (10:25)
[2021-06-07] MEDS: Nystatin Powder 15 GM BOT TOP SCH ×2 (10:26→21:07)
[2021-06-07] MEDS: Micafungin 100 MG in Sodium Chloride 0.9% 100 ML IVPB SCH (10:31)
[2021-06-07] MEDS: ALPRAZolam 0.5 MG TAB PO PRN (10:32)
[2021-06-07] MEDS ORDERED: Megestrol Acetate 800 MG/20 ML UDCUP PO SCH (11:30)
[2021-06-07] MEDS ORDERED: Amino Acids 4.25 %/Dextrose 5% 1,000 ML IV SCH (11:30)
[2021-06-07] MEDS ORDERED: Amino Acids 4.25 %/Dextrose 5% 2,000 ML BAG IV SCH (12:00)
[2021-06-07] MEDS: Morphine 4 MG/ML VIAL SLOW IVP PRN ×2 (13:12→18:05)
[2021-06-07] MEDS: Mirtazapine 15 MG TAB PO SCH (22:20)
[2021-06-08 03:34] LABS: #Basophils 0.1 thou/uL (0.0-0.2); #Lymphocytes 0.3 thou/uL (1.20-3.40); #Monocytes 0.3 thou/uL (0.11-0.59); #Neutrophils 16.1 thou/uL (1.40-6.50); %Basophils 0.5 % (0.0-1.0); %Eosinophils 0.1 % (0.0-10.0); %Lymphocytes 1.9 % (21.0-51.0); %Neutrophils 95.4 % (42.0-75.0); Hemoglobin 11.6 g/dL (14.0-18.0); Mean Corpuscular HGB CONC 30.2 g/dL (32.0-36.0); Mean Corpuscular Hemoglobin 28.4 pg (27.0-31.0); Mean Corpuscular Volume 94.2 fL (78.0-98.0); Mean Platelet Volume 8.9 fL (7.4-10.4); Platelet Count 247 thou/uL (130-400); RBC Distribution Width 13.8 % (11.5-14.5); Red Blood Cell (RBC) Count 4.07 mill/uL (4.70-6.10); White Blood Cell (WBC) Count 16.9 thou/uL (4.8-10.8)
[2021-06-08 03:55] LABS: ALT (SGPT) 16 U/L (8-55); AST (SGOT) 13 U/L (5-34); Albumin 2.6 g/dL (3.4-4.8); Alkaline Phosphatase 82 U/L (40-110); Anion Gap 12 mmol/L (10-20); BUN (Urea Nitrogen) 33 mg/dL (8.4-25.7); Bilirubin, Total 0.2 mg/dL (0.2-1.2); Calc. Creatinine Clearance 115 mL/min (70-130); Calcium 8.5 mg/dL (7.8-10.44); Carbon Dioxide 34 mmol/L (23-31); Chloride 98 mmol/L (98-107); Globulin 2.4 g/dL (2.4-3.5); Glucose 143 mg/dL (83-110); Potassium 5.5 mmol/L (3.5-5.1); Sodium 138 mmol/L (136-145)
[2021-06-08] MEDS: Enoxaparin Sodium 60 MG/0.6 ML SYRINGE SC SCH ×2 (08:48→21:46)
[2021-06-08] MEDS: ALPRAZolam 0.5 MG TAB PO PRN (08:48)
[2021-06-08] MEDS: Aspirin 81 mg Enteric Coated Tablet PO SCH (08:48)
[2021-06-08] MEDS: Dexamethasone 10 MG/ML VIAL SLOW IVP SCH (08:48)
[2021-06-08] MEDS: Morphine 4 MG/ML VIAL SLOW IVP PRN ×2 (09:16→19:00)
[2021-06-08] MEDS: Ascorbic Acid 500 mg Chewable Tablet PO SCH (10:54)
[2021-06-08] MEDS: Cholecalciferol (Vitamin D3) 400 UNITS TAB PO SCH (10:54)
[2021-06-08] MEDS: Zinc Sulfate 220 MG CAP PO SCH (10:55)
[2021-06-08] MEDS: Sulfameth/Trimethoprim SS 400-80MG TAB PO SCH (10:55)
[2021-06-08] MEDS: Micafungin 100 MG in Sodium Chloride 0.9% 100 ML IVPB SCH (10:55)
[2021-06-08] MEDS: Megestrol Acetate 800 MG/20 ML UDCUP PO SCH (10:55)
[2021-06-08] MEDS: Nystatin Powder 15 GM BOT TOP SCH ×2 (10:55→21:46)
[2021-06-08 12:31] VITALS: BP 146/70
[2021-06-08] MEDS: Amino Acids 4.25 %/Dextrose 5% 1,000 ML IV SCH (17:12)
[2021-06-09] MEDS: Amino Acids 4.25 %/Dextrose 5% 1,000 ML IV SCH (01:43)
[2021-06-09 05:02] LABS: #Lymphocytes 0.5 thou/uL (1.20-3.40); #Monocytes 0.3 thou/uL (0.11-0.59); #Neutrophils 13.9 thou/uL (1.40-6.50); %Eosinophils 0.2 % (0.0-10.0); %Lymphocytes 3.4 % (21.0-51.0); %Neutrophils 94.3 % (42.0-75.0); Hemoglobin 11.2 g/dL (14.0-18.0); Mean Corpuscular HGB CONC 30.2 g/dL (32.0-36.0); Mean Corpuscular Hemoglobin 28.4 pg (27.0-31.0); Mean Corpuscular Volume 94.1 fL (78.0-98.0); Mean Platelet Volume 9.1 fL (7.4-10.4); Platelet Count 254 thou/uL (130-400); RBC Distribution Width 13.7 % (11.5-14.5); Red Blood Cell (RBC) Count 3.93 mill/uL (4.70-6.10); White Blood Cell (WBC) Count 14.8 thou/uL (4.8-10.8)
[2021-06-09] MEDS: Morphine 4 MG/ML VIAL SLOW IVP PRN ×2 (05:24→17:55)
[2021-06-09 05:25] LABS: Anion Gap 12 mmol/L (10-20); BUN (Urea Nitrogen) 32 mg/dL (8.4-25.7); Calc. Creatinine Clearance 124 mL/min (70-130); Carbon Dioxide 35 mmol/L (23-31); Chloride 96 mmol/L (98-107); Glucose 104 mg/dL (83-110); Potassium 5.1 mmol/L (3.5-5.1); Sodium 138 mmol/L (136-145)
[2021-06-09] MEDS: Aspirin 81 mg Enteric Coated Tablet PO SCH (07:42)
[2021-06-09] MEDS: Cholecalciferol (Vitamin D3) 400 UNITS TAB PO SCH (07:42)
[2021-06-09] MEDS: Ascorbic Acid 500 mg Chewable Tablet PO SCH (07:42)
[2021-06-09] MEDS: Megestrol Acetate 800 MG/20 ML UDCUP PO SCH (07:43)
[2021-06-09] MEDS: Zinc Sulfate 220 MG CAP PO SCH (07:44)
[2021-06-09] MEDS: Nystatin Powder 15 GM BOT TOP SCH ×2 (11:32→20:44)
[2021-06-09] MEDS: Dexamethasone 10 MG/ML VIAL SLOW IVP SCH (11:32)
[2021-06-09] MEDS: Enoxaparin Sodium 60 MG/0.6 ML SYRINGE SC SCH ×2 (11:32→20:41)
[2021-06-09] MEDS: Micafungin 100 MG in Sodium Chloride 0.9% 100 ML IVPB SCH (11:33)
[2021-06-10] MEDS: Amino Acids 4.25 %/Dextrose 5% 1,000 ML IV SCH ×2 (01:00→16:25)
[2021-06-10 04:13] LABS: Hemoglobin 10.3 g/dL (14.0-18.0); Hypochromia SLIGHT = 6-15 cells (100X) (0-5/hpf); Lymphocytes 16 % (21-51); MDiff Complete? YES; Mean Corpuscular HGB CONC 29.9 g/dL (32.0-36.0); Mean Corpuscular Hemoglobin 28.5 pg (27.0-31.0); Mean Corpuscular Volume 95.6 fL (78.0-98.0); Neutrophil 84 % (42-75); Platelet Count 217 thou/uL (130-400); Platelet Morphology Comment Appears Adequate; RBC Distribution Width 13.9 % (11.5-14.5); Red Blood Cell (RBC) Count 3.62 mill/uL (4.70-6.10); White Blood Cell (WBC) Count 14.2 thou/uL (4.8-10.8)
[2021-06-10] MEDS: Morphine 4 MG/ML VIAL SLOW IVP PRN ×4 (06:12→19:38)
[2021-06-10 06:49] LABS: Chloride 93 mmol/L (98-107); Potassium 5.3 mmol/L (3.5-5.1); Sodium 136 mmol/L (136-145)
[2021-06-10 06:50] LABS: Calcium 8.8 mg/dL (7.8-10.44); Glucose 123 mg/dL (83-110)
[2021-06-10 07:03] LABS: BUN (Urea Nitrogen) 40 mg/dL (8.4-25.7); Calc. Creatinine Clearance 114 mL/min (70-130)
[2021-06-10 07:05] LABS: Carbon Dioxide 35 mmol/L (23-31)
[2021-06-10 07:10] LABS: Anion Gap 13 mmol/L (10-20)
[2021-06-10] MEDS: Ascorbic Acid 500 mg Chewable Tablet PO SCH (07:31)
[2021-06-10] MEDS: Aspirin 81 mg Enteric Coated Tablet PO SCH (07:32)
[2021-06-10] MEDS: Zinc Sulfate 220 MG CAP PO SCH (07:32)
[2021-06-10] MEDS: Cholecalciferol (Vitamin D3) 400 UNITS TAB PO SCH (07:32)
[2021-06-10] MEDS: Megestrol Acetate 800 MG/20 ML UDCUP PO SCH (07:32)
[2021-06-10] MEDS: Enoxaparin Sodium 60 MG/0.6 ML SYRINGE SC SCH ×2 (08:30→20:20)
[2021-06-10] MEDS: Micafungin 100 MG in Sodium Chloride 0.9% 100 ML IVPB SCH (08:31)
[2021-06-10] MEDS: Nystatin Powder 15 GM BOT TOP SCH ×2 (08:31→20:05)
[2021-06-10] MEDS: Dexamethasone 10 MG/ML VIAL SLOW IVP SCH (08:31)
[2021-06-10] MEDS ORDERED: Lorazepam 2 MG/ML VIAL SLOW IVP PRN (14:03)
[2021-06-10 20:10] VITALS: TEMP 98.2
== END 2021-06-10 20:56 | disposition expired | DRG 871 ==
LOC: ERS 14:37 → 2SW 17:40 → IMCU/EMU 05-22 09:52
PROVIDERS: ADMIT Internal Medicine; ATTEND Internal Medicine
PROC: 5A0955A Assistance with Respiratory Ventilation, Greater than 96 Consecutive Hours, High Flow/Velocity Cannula (ICD-10-PCS; 2021-05-20)
PROC: 3E0333Z Introduction of Anti-inflammatory into Peripheral Vein, Percutaneous Approach (ICD-10-PCS; 2021-05-20)
PROC: 8E0ZXY6 Isolation (ICD-10-PCS; 2021-05-20)
PROC: XW033E5 Introduction of Remdesivir Anti-infective into Peripheral Vein, Percutaneous Approach, New Technology Group 5 (ICD-10-PCS; principal; 2021-05-21)
PROC: 3E0G76Z Introduction of Nutritional Substance into Upper GI, Via Natural or Artificial Opening (ICD-10-PCS; 2021-05-21)
PROC: XW0DXM6 Introduction of Baricitinib into Mouth and Pharynx, External Approach, New Technology Group 6 (ICD-10-PCS; 2021-05-22)
PROC: 5A09557 Assistance with Respiratory Ventilation, Greater than 96 Consecutive Hours, Continuous Positive Airway Pressure (ICD-10-PCS; 2021-05-27)
DX: A41.89 Other specified sepsis (principal); U07.1 COVID-19; J12.82 Pneumonia due to coronavirus disease 2019; J96.01 Acute respiratory failure with hypoxia; J96.02 Acute respiratory failure with hypercapnia; J15.1 Pneumonia due to Pseudomonas; G72.81 Critical illness myopathy; G93.49 Other encephalopathy; E87.1 Hypo-osmolality and hyponatremia; Z66 Do not resuscitate; Z51.5 Encounter for palliative care; K21.9 Gastro-esophageal reflux disease without esophagitis; F41.0 Panic disorder [episodic paroxysmal anxiety]; F40.240 Claustrophobia; E86.0 Dehydration; E87.5 Hyperkalemia; Z28.21 Immunization not carried out because of patient refusal; Z98.890 Other specified postprocedural states; Z80.3 Family history of malignant neoplasm of breast; Z79.899 Other long term (current) drug therapy
CPT/HCPCS: 36415; 36416; 71045; 71275; 80048; 80053; 80076; 82728; 82805; 83605; 83735; 83880; 84100; 84145; 84484; 85025; 85379; 85384; 86140; 87040; 87070; 87077; 87186; 87205; 93005; 93306; 94660; 96374; C9113; J0456; J0692; J0696; J1100; J1650; J1940; J1956; J2060; J2248; J2270; J2405; J3490; J7042; J7050; Q9967; S0028; U0002